=== PATIENT | male | born 1965 | race Caucasian/White ===

== ENCOUNTER 2022-10-27 12:13 | Emergency (ER) | payer OTHER ==
[~2022-10-27] VITALS: Ht 172.7 cm; Wt 83.9 kg
[2022-10-27] MEDS ORDERED: Percocet 5-3251 EACH PO ×2 (17:04→17:06)
== END 2022-10-27 17:20 | disposition home or self-care (01) ==
LOC: ER 12:13
DX: R07.81 Pleurodynia (principal); F17.200 Nicotine dependence, unspecified, uncomplicated
CPT/HCPCS: 71046; A9270

== ENCOUNTER 2025-03-17 03:06 | Emergency (ER) | payer OTHER ==
[~2025-03-17] VITALS: Ht 172.7 cm; Wt 83.9 kg
[~2025-03-17 03:06] MED LIST: Percocet 5-3251 EACH PO
[2025-03-17 03:55] VITALS: BP 185/122
[2025-03-17] MEDS ORDERED: Acetaminophen 500 MG Tab PO ONE (04:50)
[2025-03-17] MEDS ORDERED: Ibuprofen 600 MG Tab PO ONE (04:50)
== END 2025-03-17 05:26 | disposition home or self-care (01) ==
LOC: ER 03:06
DX: S01.112A Laceration without foreign body of left eyelid and periocular area, initial encounter (principal); S01.131A Puncture wound without foreign body of right eyelid and periocular area, initial encounter; M25.531 Pain in right wrist; R51.9 Headache, unspecified; Y04.8XXA Assault by other bodily force, initial encounter
CPT/HCPCS: 73110; 99283-25; A9270

== ENCOUNTER → 2025-10-04 | Outpatient (CLI) | payer OTHER ==
[2025-10-04 17:29] LABS: BASOPHILS ABSOLUTE AUTO 0.07 K/mm3 (0.00-0.23); BASOPHILS PERCENT AUTO 1 % (0-2); EOSINOPHILS ABSOLUTE AUTO 0.13 K/mm3 (0.00-0.68); EOSINOPHILS PERCENT AUTO 2 % (0-6); Hematocrit 45.4 % (37.0-53.0); Hemoglobin 15.3 g/dL (13.5-17.5); IMMATURE GRAN ABSOLUTE AUTO 0.01 K/mm3 (0.00-0.10); IMMATURE GRAN PERCENT AUTO 0 % (0-1); LYMPHOCYTES ABSOLUTE AUTO 1.97 K/mm3 (0.84-5.20); LYMPHOCYTES PERCENT AUTO 27 % (21-46); MONOCYTES ABSOLUTE AUTO 0.64 K/mm3 (0.16-1.47); MONOCYTES PERCENT AUTO 9 % (4-13); Mean Corpuscular HGB Conc 33.7 g/dL (31.5-36.5); Mean Corpuscular Volume 90 fL (80-100); NEUTROPHILS ABSOLUTE AUTO 4.43 K/mm3 (1.96-9.15); NEUTROPHILS PERCENT AUTO 61 % (41-73); NRBC ABSOLUTE 0.00 K/mm3 (0.00-0.02); NRBC Auto 0.0 /100 WBC (0.0-0.2); Platelet Count 185 K/mm3 (150-400); RDW Coefficient Variation 13.6 % (11.7-14.2); RDW Standard Deviation 44.0 fL (35.1-46.3)
[2025-10-04 17:40] LABS: Alanine Aminotransfer (ALT/SGP 28.0 U/L (12-78); Albumin, Blood 3.3 g/dL (3.4-5.0); Albumin/Globulin Ratio 1.1 (0.8-1.8); Anion Gap 1.0 mmol/L (3-11); Aspartate Aminotrans (AST/SGOT 21.0 U/L (12-37); Bilirubin, Total 0.2 mg/dL (0.1-1.0); Blood Urea Nitrogen 19.0 mg/dL (8-24); CO2, Blood 28.0 mmol/L (21-32); Calcium, Blood 8.4 mg/dL (8.5-10.1); Chloride, Blood 104.0 mmol/L (98-108); Creatinine, Blood 1.14 mg/dL (0.60-1.20); Globulin, Blood 3.1 g/dL (2.2-4.0); Glucose, Blood 81.0 mg/dL (70-99); Potassium, Blood 4.2 mmol/L (3.5-5.5); Sodium, Blood 129.0 mmol/L (136-145); Total Protein, Blood 6.4 g/dL (6.4-8.2)
== END ==
LOC: LAB SHORT 17:24 → LAB 17:24
PROVIDERS: Physician Assistant
DX: R07.89 Other chest pain (principal); R53.83 Other fatigue
CPT/HCPCS: 80053; 84443; 84484; 85025

== ENCOUNTER 2025-11-06 16:19 | Emergency (ER) | payer OTHER ==
[~2025-11-06] VITALS: Ht 170.2 cm; Wt 86.2 kg
[2025-11-06 16:34] VITALS: BP 149/112
[2025-11-06] MEDS ORDERED: Dexamethasone Sod Phos 10 MG/ML 1ML VIAL PO ONE (16:35)
[2025-11-06] MEDS ORDERED: Albuterol 2.5 MG/3 ML VIAL INH SCH (16:35)
[2025-11-06 17:47] LABS: Influenza A, PCR NEGATIVE (NEGATIVE); Influenza B, PCR NEGATIVE (NEGATIVE); Resp Syncytial Virus, PCR NEGATIVE (NEGATIVE); SARS-Cov-2 (COVID-19) PCR, MMC NEGATIVE (NEGATIVE)
[2025-11-06] MEDS ORDERED: BENZ100A PO (18:13)
[2025-11-06] MEDS ORDERED: PRED20 PO (18:13)
[2025-11-06] MEDS ORDERED: ALBU90OI INH (18:13)
== END 2025-11-06 18:30 | disposition home or self-care (01) ==
LOC: ER 16:19
PROVIDERS: Emergency Medicine
DX: J06.9 Acute upper respiratory infection, unspecified (principal); J44.9 Chronic obstructive pulmonary disease, unspecified; F17.200 Nicotine dependence, unspecified, uncomplicated; Z79.899 Other long term (current) drug therapy
CPT/HCPCS: 71046; 87637; J1100